=== PATIENT | female | born 2005 | race Caucasian/White ===

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

== ENCOUNTER → 2025-06-25 | Outpatient (CLI) | payer OTHER, SELFPAY ==
--- OUTSIDE RECORDS SUMMARY | 2025-06-25 09:33 | XMS RPT_ITS | CCD ---
Author Organization [facility] Care Team Providers Care Franchise Business Consultant Name Role Phone PHYSICIAN, NOT RECORDED Primary Care Physician U Veronica Moulton RN Unavailable Tri Greenwood Primary Care Provider Tri Greenwood DO Primary Care Provider Veronica Hurley RN Unavailable Tri Greenwood Primary Care Provider Vj VIEYRA, [facility] [place] Primary Care Provider UnavailVeronica Waldron RN Unavailable Tri Greenwood Primary Care Provider KHADIJAH CERVANTES Attending Unavailable TRI GREENWOOD Primary Care Unavailable TRI GREENWOOD Primary Care Unavailable RADHA NICE Attending Unavailable RADHA NICE Attending Unavailable TRI GREENWODO Primary Care Unavailable Vj VIEYRA, [facility] [place] Primary Care Provider UnavailAlberto Mccabe Attending Provider Alberto Montes Attending Unavailable VJ, [facility] [place] Unavailable ANTONIETA JAMES Attending Unavailable ANTONIETA JAMES Referring Unavailable VJ, [facility] [place] Care Unavailable ANTONIETA JAMES Attending Unavailable GAGE KHAN Attending Unavailable ALYSON OH Attending Unavailable CHELSEY ROBLES Attending Unavailable CHELSEY ROBLES Attending Unavailable CHELSEY ROBLES Referring Unavailable Allergies Allergy Classification Reported Allergen(s) Allergy Type Date of Onset Reaction(s) Facility (5 sources) Milk-Related Compounds; Translations: [MILK-RELATED COMPOUNDS] Drug Allergy [facility] Medications Current Medications Medication Drug Class(es) Dates Sig (Normalized) Sig (Original) FLUoxetine 10 mg oral capsule (12 sources) Serotonin Reuptake Inhibitor Start: 11-05-2021 FLUoxetine (PROZAC) 10 MG capsule TAKE 2 CAPSULES DAILY 180 Capsule 3 11/05/2021 Active Start: 04-10-2019 take 1 capsule by mo cah once daily Fluoxetine 20 mg capsule Active 20 mg PO DAILY April 10, 2019 12:00am Start: 11-09-2016 take 1 tablet by memo th once daily FLUoxetine (PROZAC) 10 mg tablet TAKE 1 & 1/2 TABLETS BY MOUTH ONCE A DAY 0 11/09/2016 Active FLUoxetine (PROZ AC) 20 MG/5ML oral solution Take by mouth daily 0 Active Comment on above: TAKE 1 & 1/2 TABLETS BY MOUTH ONCE A DAY Lactobacillus Combination No.4 (Probiotic) 3 billion cell capsule (1 source) Start: take 3 capsules by mouth once daily Lactobacillus Combination No.4 (Probiotic) 3 billion cell capsule Active 3000 NMA PO DAILY April 10, 2019 12:00am levothyroxine sodium 0.112 mg oral tablet (17 sources) l-Thyroxine Start: 3 SYNTHROID 112 mcg tablet 06/22/2023 Active Start: 06-29-2022 take 1 tablet by memo th once daily levothyroxine (SYNTHROID) 112 MCG tablet TAKE 1 TABLET BY MOUTH DAILY Strength: 112 mcg 90 Tablet 3 06/29/2022 Active Start: 05-26-2021 take 1 tablet by memo th once daily levothyroxine (SYNTHROID) 112 MCG tablet Take 1 Tablet (112 mcg) by mouth daily 90 Tablet 3 05/26/2021 Active Start: 06-19-2020 take 1 tablet by memo th once daily levothyroxine (SYNTHROID) 100 mcg tablet Take 100 mcg by mouth once daily. 0 06/19/2020 Active Start: 02-02-2015 levothyroxine (SYNTHROID) 125 mcg tablet levothyroxine Levothyroxine Active 100 MCG DAILY February 02, 2015 4:51pm 02-02-2015 [facility] ([id number]) 0 02/02/2015 Active Start: 02-02-2015 Levothyroxine 125 MCG tablet Active 100 ug PO DAILY February 02, 2015 12:00am Comment on above: levothyroxine Levoth yroxine Active 100 MCG DAILY February 02, 2015 4:51pm 02-02-2015 [facility] ([id number]) Take 100 mcg by mout h once daily. Multiple Vitamin (MULTI-VITAMIN DAILY PO) (3 sources) Multiple Vitamin (MULTI-VITAMIN DAILY PO) Take by mouth 0 Active multivitamin tablet (2 sources) multivitamin tab let Take by mouth as directed. Active predniSONE 10 mg oral tablet (1 source) Start: take 3 tablets by mouth once daily, then take 2 tablets by mouth once daily, then take 1 tablet by mouth once daily Prednisone 10 mg tablet Active 10 mg PO DAILY 18 0 December 31, 2024 12:00am 3 tablets daily x3 days, then 2 tablets daily x3 days, then 1 tablet daily x3 days Probiotic Product (PROBIOTIC-10 PO) (3 sources) Probiotic Produc t (PROBIOTIC-10 PO) Take by mouth 0 Active spironolactone 100 mg oral tablet (3 sources) Aldosterone Antagonist spironolactone (ALDACTONE) 100 MG Take by mouth 0 Active Completed/Discontinued Medications Medication Drug Class(es) Dates Sig (Normalized) Sig (Original) acetaminophen 325 mg oral tablet (4 sources) Start: 08-11-2020 End: 01-17-2023 take 2 tablets by mouth every six hours acetaminophen (TYLENOL) 325 mg tablet Take 2 tablets by mouth every 6 hours. 0 08/11/2020 01/17/2023 Discontinued (Course of therapy completed) Comment on above: Take 2 tablets by mo uth every 6 hours. amoxicillin 500 mg oral tablet (1 source) Penicillin-class Antibacterial Start: 08-04-2019 End: 05-29-2022 take 1 tablet by mouth twice daily Amoxicillin 500 mg tablet Discontinued 500 mg PO TWICE A DAY 20 0 August 04, 2019 1:00am May 29, 2022 1:38pm norethindrone 0.35 mg oral tablet (4 sources) Start: 05-30-2023 End: 03-08-2025 take 1 tablet by mouth once daily Norethindrone, Contraceptive, 0.35 mg tablet Take 1 tablet by mouth once daily. 84 tablet 3 04/06/2024 05/30/2024 Discontinued (Discontinued by Patient) oseltamivir 75 mg oral capsule (1 source) Neuraminidase Inhibitor Start: 05-29-2022 End: 06-03-2022 take 1 capsule by mouth twice daily Oseltamivir (Tamiflu) 75 mg capsule Discontinued 75 mg PO TWICE A DAY 10 5 0 May 29, 2022 1:00am June 02, 2022 1:00am June 03, 2022 1:03am spironolact/hydroch lorothiazid (SPIRONOLACTON-HYDR OCHLOROTHIAZ ORAL) (5 sources) Start: 06-03-2020 spironolact/hydroc hlorothiazid (SPIRONOLACTON-HYD ROCHLOROTHIAZ ORAL) Problems Active Problems Problem Classification Problem Date Documented Date Episodic/Chronic Anxiety disorders (4 sources) Generalized anxiety disorder; Translations: [Generalized anxiety disorder] Onset: 09-13-2010 08-13-2021 Chronic Cardiac dysrhythmias (5 sources) Palpitations; Translations: [Palpitations] Onset: 01-29-2015 01-29-2015 Episodic Esophageal disorders (4 sources) Gastroesophageal reflux disease; Translations: [Gastro-esophageal reflux disease without esophagitis] Onset: 11-13-2012 12-03-2012 Chronic Inflammatory diseases of female pelvic organs (1 source) Acute vaginitis; Translations: [Acute vaginitis] 05-30-2024 Episodic Other congenital anomalies (16 sources) Pectus excavatum; Translations: [Pectus excavatum] Onset: 09-20-2017 Chronic Other female genital disorders (1 source) Vaginal discharge; Translations: [Other specified noninflammatory disorders of vagina] 05-30-2024 Episodic Other female genital disorders (1 source) Vaginal odor; Translations: [Other specified noninflammatory disorders of vagina] 05-30-2024 Episodic Superficial injury; contusion (1 source) Contusion of thumb; Translations: [Contusion of unspecified thumb without damage to nail, initial encounter] 02-03-2015 Episodic Thyroid disorders (12 sources) Luba thyroiditis; Translations: [Autoimmune thyroiditis] Onset: 06-12-2013 Chronic Past or Other Problems Problem Classification Problem Date Documented Date Episodic/Chronic Contraceptive and procreative management (2 sources) Patient encounter status; Translations: [Encounter for other contraceptive management] Onset: 07-15-2023 04-06-2024 Episodic Other nervous system disorders (7 sources) Acute postoperative pain; Translations: [Other acute postprocedural pain] Onset: 08-11-2020 08-11-2020 Episodic Other nutritional; endocrine; and metabolic disorders (4 sources) Short stature of childhood; Translations: [Short stature (child)] Onset: 06-12-2013 Resolved: 09-25-2017 01-09-2018 Episodic Other upper respiratory disease (2 sources) Nasal congestion; Translations: [Nasal congestion] Onset: 06-10-2024 Episodic Other upper respiratory infections (6 sources) Upper respiratory infection; Translations: [Acute upper respiratory infection, unspecified] Onset: 08-24-2024 05-29-2022 Episodic Residual codes; unclassified (4 sources) Finding of body mass index; Translations: [Body mass index (BMI) pediatric, 5th percentile to less than 85th percentile for age] Onset: 06-12-2013 06-12-2013 Episodic Spondylosis; intervertebral disc disorders; other back problems (4 sources) Backache; Translations: [Dorsalgia, unspecified] Onset: 09-20-2017 Resolved: 01-09-2018 01-09-2018 Episodic Sprains and strains (4 sources) Sprain of interphalangeal joint of finger; Translations: [Sprain of interphalangeal joint of unspecified finger, initial encounter] Onset: 10-29-2008 Resolved: 01-09-2018 01-09-2018 Episodic Viral infection (2 sources) Viral infection, unspecified; Translations: [Viral infection, unspecified] Onset: 06-10-2024 Episodic Results Test Name Value Interpretation Reference Range Facility FERRITINon 01-29-2025 Ferritin [Mass/Vol] 75 ng/mL Normal 22-378 [facility] Comment on above: Result Comment: Veri fied By: [id number] IRONon 01-29-2025 %Saturation 22 % Normal 13-59 [facility] Comment on above: Result Comment: Veri fied By: [id number] IRON 68 ???g/dL Normal 30-160 [facility] Comment on above: Result Comment: Veri fied By: [id number] TIBC 309 ???g/dL Normal 228-428 [facility] Comment on above: Result Comment: Veri fied By: [id number] Progress Noteon 01-29-2025 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 female who is followed for Luba's thyroiditis. HPI Comments: Ryne is present today for a follow up visit for Luba's thyroiditis. She has been healthy over the past year. She denies any signs or symptoms of concern related to her thyroid disease. Her current dose is Levothyroxine 112 mcg and denies missed doses. She confirmed her administration on an empty stomach with no additional supplements such as iron. 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 She is entering her senior year and is unsure as to where she will be living after graduation. ROS Review of Systems Constitutional: Negative. HENT: Negative. Eyes: Negative. Respiratory: Negative. Cardiovascular: Negative. Gastrointestinal: Negative. Genitourinary: Negative. Cycles are irregular at times, 21-30 day. Musculoskeletal: Negative. Skin: Negative. Neurological: Negative. Negative for headaches. Endo/Heme/Allergies: Negative. No concerns with signs or symptoms related to thyroid. Psychiatric/Behavior al: Negative. Denies any concerns with anxiety or depression, for which she does have a history of. All other systems reviewed and are negative. Patient's medications, allergies, past medical, surgical, , social, and family histories were reviewed and updated as appropriate. Patient Active Problem List Diagnosis Date Noted Pectus excavatum 09/20/2017 Palpitation 01/29/2015 Chronic lymphocytic thyroiditis 06/12/2013 BMI (body mass index), pediatric, 5% to less than 85% for age 1206/12/2013 Esophageal reflux 11/13/2012 Generalized anxiety disorder 09/13/2010 Current Outpatient Medications on File Prior to Visit Medication Sig Dispense Refill levothyroxine (SYNTHROID) 112 MCG tablet Take 1 Tablet (112 mcg) by mouth daily 30 Tablet 5 levothyroxine (SYNTHROID) 112 MCG tablet TAKE 1 TABLET BY MOUTH DAILY Strength: 112 mcg 90 Tablet 3 No current facility-administere d medications on file prior to visit. Allergies Allergen Reactions Milk-Related Compounds Objective: BP 110/74 Pulse 104 Ht 163.9 cm Wt (!) 48.9 kg LMP 01/16/2025 BMI 18.20 kg/m Growth %ile SmartLinks can only be used for patients less than 20 years old. Wt Readings from Last 3 Encounters: 01/29/25 (!) 48.9 kg 01/31/24 (!) 47.7 kg 02/22/23 49.5 kg (15%, Z= -1.05)* * Growth percentiles are based on CDC (Girls, 2-20 Years) data. Ht Readings from Last 3 Encounters: 01/29/25 163.9 cm 01/31/24 163.5 cm 02/22/23 164 cm (54%, Z= 0.11)* * Growth percentiles are based on CDC (Girls, 2-20 Years) data. Facility age limit for growth %yuri is 20 years. Physical Exam Vitals reviewed. Constitutional: Appearance: Normal appearance. She is well-developed and underweight. Comments: She is noted for approximately 5 pound weight loss since her last visit HENT: Mouth/Throat: Lips: [place]. No lesions. Mouth: Mucous membranes are moist. Eyes: General: Vision grossly intact. Conjunctiva/sclera: Conjunctivae normal. Pupils: Pupils are equal, round, and reactive to light. Neck: Thyroid: No thyromegaly or thyroid tenderness. Cardiovascular: Rate and Rhythm: Normal rate. Pulses: Normal pulses. Heart sounds: Normal heart sounds. Pulmonary: Effort: Pulmonary effort is normal. Breath sounds: Normal breath sounds. Abdominal: Palpations: Abdomen is soft. Feet: Right foot: Skin integrity: Skin integrity normal. Left foot: Skin integrity: Skin integrity normal. Skin: General: Skin is warm. Capillary Refill: Capillary refill takes less than 2 seconds. Neurological: General: No focal deficit present. Mental Status: She is alert and oriented to person, place, and time. Mental status is at baseline. Psychiatric: Attention and Perception: Attention and perception normal. Mood and Affect: Mood normal. Behavior: Behavior normal. Behavior is cooperative. Thought Content: Thought content normal. Cognition and Memory: Cognition normal. Judgment: Judgment normal. LABS: Component Latest Ref Rng & Units 01/25/2022 02/15/2022 02/18/2023 01/31/24 01/29/25 T4, Free 0.8 - 1.5 ng/dL 1.2 1.3 1.6 (H) 1.6 1.9 TSH 0.500 - 4.300 uIU/mL 16.700 (H) 2.910 3.950 4.220 1.150 DOSE 112 mcg 112 mcg 25 OH Vitamin D 30 - 100 ng/mL 39 Iron/Ferritin 69/309/22% Assessment & Plan: 19 y.o. female with Luba's thyroiditis who presents today bio-chemically and clinically euthyroid. She is doing well on her current dose of Levothyroxine 112 mcg daily. Review of all symptoms related to hypothyroidism and hyperthyroidism were reviewed with her today. Encouragement for adherence administration of the medication with no missed doses. We will see her back in the clinic in 1 year. Orders Placed This Encounter Procedure (more content not included)... Normal [facility] T4, FREEon 01-29-2025 Free T4 [Mass/Vol] 1.9 ng/dL High 0.8-1.5 [facility] Comment on above: Order Comment: Relea se to patient->Automatic Result Comment: Alexandro regalado By: [id number] TSHon 01-29-2025 TSH 1.150 ???IU/mL Normal 0.300-4.200 [facility] Comment on above: Order Comment: Relea se to patient->Automatic Result Comment: Alexandro regalado By: [id number] Urgent Care Visit Reporton 0 12-31-2024 Urgent Care Visit Report [facility] [address], [address] [place] [address] OFFICE VISIT Date of Service: 12/31/24 MR#: [id number] Acct: [id number] Name: RYNE YATES Tomasz Rep #: [id number] : 2005 Provider: SYLVIA Rebolledo Age/Sex: 19/F Location: [facility] Status: Signed Intake Vital Signs 08/04/19 12:23 12/31/24 17:59 Height 5 ft 4 in 5 ft 4 in Weight: 110 lb BMI 18.8 BP 90/60 Blood Pressure Location Lt brachial Position Sitting Respiration 14 Pulse 68 Pulse Source Palpation Temp 98.3 F Temp Source Oral Intake Visit Reasons: POSSIBLE BUG BITES Allergies No Known Allergies Allergy (Verified 08/04/19 12:24) [facility] Medical History (Updated 01/01/25 @ 06:27 by Alberto AWRD, SYLVIA) Insect bites Hypothyroidism Pectus excavatum Social History (Updated 08/04/19 @ 12:34 by Dee WARD, PA) Smoking Status: Never smoker alcohol intake: never HPI HPI Details: RYNE YATES, is a 19 F who presents to the office today for pruritic insect bites after hiking was 2 days ago with localized excoriation due to scratching patient so states. X 2 lesions to left lower extremity, x 1 to right lower extremity. No complaints of constricted/pruritic airway or chest pain/shortness of breath/dyspnea on exertion. No ufmo-pga-vgyrnmg product diagnosis. Mother is concerned when needing to ensure the insect bites do not appear like erythema migrans. No other associated symptoms and no alleviating/aggravat ing factors. ROS Const Constitutional: No other (as above) Exam Const General: cooperative, healthy appearing and no acute distress Nutritional Appearance: average body habitus Orientation: alert and awake Neck Neck: normal visual inspection and no meningeal signs Chest Chest palpation inspection: normal inspection of the chest Resp Effort Inspection: normal respiratory effort and able to speak in complete sentences Cardio Rate: regular rate Pulses: radial pulses present GI Inspection: normal to inspection Skin General: no rashes or lesions noted Other: Symptoms 3 lesions to BLE (2 to LLE and 1 to RLE) each with a pinpoint raised erythematous center of approximately half a centimeter in diameter and circumferential trace erythema approximately 10 cm diameter to all 3 sites. Not the classic erythema migrans presentation nor foreign body/tick appreciated upon inspection. None of the sites are warm to touch. Neuro General: patient alert and patient awake Cognition: normal cognition Speech: speech normal Extrem General: normal to inspection Psych Appearance: grossly normal Mental Status: mental status grossly normal Mood: congruent mood Affect: normal affect Speech and Movement: speech and movement normal Attitude: cooperative Coding Level of Care Code Off vis,est,level 3 Diagnoses Insect bites W57.XXXA Assessment and Plan Assessment and Plan (1) Insect bites: Status: Acute Plan: - By presentation Supportive measures as instructed today. Prednisone as prescribed today. Ensured mother that none of the sites have a classic erythema migrans type presentation.. Follow-up with PCP in 5 to 7 days should symptoms not resolve, sooner should symptoms only worsen or any other concerns develop. Patient and mother both state acknowledging understanding all the above. This note was generated with HomeVivaation software. It may contain incorrect words, spelling, and punctuation that were not noted in checking the note before signing. Medications: New prednisone 3 tablets daily x3 days, then 2 tablets daily x3 days, then 1 tablet daily x3 days 10 mg PO DAILY 18 tabs 0RF 01/01/25 0629 Date Alberto Murguia Signature: Date (if applicable) CC: Normal [facility] BACTERIAL VAGINOSIS NAATon 1 07-30-2023 Lactobacillus crispatus+gasseri+velia enii + Gardnerella vaginalis + Atopobium vaginae rRNA BRITTANI+probe Ql (Vag fld) Not detected Normal Not detected [facility] Comment on above: Order Comment: Speci men Type: SWAB Ordering Facility: [facility] Address: [address] [place] [address] Performed By: #### C VTV, BVAMP #### [facility] CLIA [id number] [address] [place] [address] [place] C. trachomatis+N. gonorrhoea e DNA BRITTANI+probe Ql (Unsp spec)on 05-30-2024 C. trachomatis rRNA BRITTANI+probe Ql (Unsp spec) Not detected Normal Not detected [facility] Comment on above: Order Comment: Speci men Type: SWAB Ordering Facility: [facility] Address: [address] [place] [address] Performed By: #### 3 [id number] #### [facility] CLIA [id number] [address] [place] [address] [place] N. gonorrhoeae rRNA BRITTANI+probe Ql (Unsp spec) Not detected Normal Not detected [facility] Comment on above: Order Comment: Speci men Type: SWAB Ordering Facility: [facility] Address: [address] [place] [address] Performed By: #### 3 [id number] #### [facility] CLIA [id number] [address] [place] [address] [place] VANGIE/TRICHOMONAS NAATon 1 07-30-2023 C. glabrata RNA BRITTANI+probe Ql (Vag fld) Not detected Normal Not detected [facility] Comment on above: Order Comment: Speci men Type: SWAB Ordering Facility: [facility] Address: [address] [place] [address] Performed By: #### C VTV, BVAMP #### [facility] CLIA [id number] [address] [place] [address] [place] Vangie sp DNA BRITTANI+probe Ql (Vag fld) Not detected Normal Not detected [facility] Comment on above: Order Comment: Speci men Type: SWAB Ordering Facility: [facility] Address: [address] [place] [address] Result Comment: The Vangie species group target includes C. albicans, C. tropicalis, C. parapsilosis, and C. dubliniensis. Performed By: #### C VTV, BVAMP #### [facility] CLIA [id number] [address] [place] [address] [place] T. vaginalis DNA BRITTANI+probe Ql (Unsp spec) Not detected Normal Not detected [facility] Comment on above: Order Comment: Speci men Type: SWAB Ordering Facility: [facility] Address: [address] [place] [address] Performed By: #### C VTV, BVAMP #### [facility] CLIA [id number] [address] [place] [address] [place] CNOVon 05-30-2024 CNOV Office Visit (OBGYWM) RYNE YATES ([id number]) 1 F Date Time Provider Department 05/30/24 1:45 PM KHADIJAH CERVANTES OBGYWAngela During your visit today, we recorded the following information about you: Blood pressure Weight Last Period 104/78 50.3 kg 02/13/24 Khadijah Cervantes APRN.CNM 05/30/2024 2:30 PM Signed Oral Surgeon offered: Patient declines. SUBJECTIVE: Ryne Yates is an 18 year old woman who presents with vaginitis. Symptoms include discharge described as malodorous, white, mucous, local irritation, and odor. Onset of symptoms 1 week(s) ago, intermittent since. Predisposing factors: none Hx of previous vaginitis: none Sexually active: yes, single partner, contraception - condoms. Current Outpatient Medications on File Prior to Visit Medication Sig multivitamin tablet Take by mouth as directed. SYNTHROID 112 mcg tablet Norethindrone, Contraceptive, 0.35 mg tablet Take 1 tablet by mouth once daily. No current facility-administere d medications on file prior to visit. ALLERGIES No Known Allergies Social History Tobacco Use Smoking status: Never Passive exposure: Never Smokeless tobacco: Never Vaping Use Vaping status: Never Used Substance Use Topics Alcohol use: Never Drug use: Never OBJECTIVE: BP 104/78 Wt 50.3 kg (110 lb 12.8 oz) LMP 02/13/2024 (Approximate) BMI 18.53 kg/m? Pelvic: Negative, Bimanual exam normal. ASSESSMENT AND PLAN: Assessment AND Plan Vaginal discharge Vaginal odor Acute vaginitis GC/CH BACT/YEAST Reviewed vulvar hygiene Reviewed safe sex practices- stopped using OCP last month and is currently using condoms Will notify patient of results and any treatment plans Khadijah Cervantes APRN.CNM Allergies As of Date: 05/30/2024 (No Known Allergies) Date Reviewed: 05/30/2024 Reviewed by: Tri Hooker MA - Fully Assessed Reason for Visit: Vaginal Problem [117] Primary Visit Diagnosis:Vaginal discharge [N89.8] Other Visit Diagnoses:Vaginal odor [N89.8] Acute vaginitis [N76.0] Order(s):BACTERIAL VAGINOSIS NAAT [SQBVAMP] Order #: [id number]. #:[id number] VANGIE/TRICHOMONAS NAAT [SQCVTV] Order #: [id number]. #:[id number] GONORRHEA/CHLAMYDIA NAAT [SQGCCT] Order #: [id number]. #:[id number] Prescriptions as of 05/30/2024 - multivitamin tablet Take by mouth as directed. - SYNTHROID 112 mcg tablet Problem List As Of Date 05/30/2024 Noted Resolved Pectus excavatum [Q67.6] 08/07/2020 Acute post-operative pain [G89.18] 08/11/2020 Medications Discontinued During This Encounter Prescriptions - Norethindrone, Contraceptive, 0.35 mg tablet (Discontinued) Take 1 tablet by mouth once daily. Encounter Status:Closed by KHADIJAH CERVANTES on 05/30/24 Normal [facility] No Panel InformationOrdered By: Background Lab on 01-31-2024 Interpretation and review of laboratory results Abnormal [facility] T4, freeOrdered By: Mimi nd Lab on 01-31-2024 Free T4 [Mass/Vol] 1.6 ng/dL High [facility] TSHon 01-31-2024 TSH Qn 4.220 m[IU]/L High [facility] CNOVon 07-15-2023 CNOV Office Visit (OBGYWM) RYNE YATES ([id number]) 1 F Date Time Provider Department 07/15/23 1:30 PM RADHA NICE During your visit today, we recorded the following information about you: Blood pressure Weight 90/58 48.3 kg Radha NiceMIRIAN 07/15/2023 1:52 PM Signed Oral Surgeon offered: Patient declines. Ryne is a 17 year old who presents for an annual gynecologic exam without complaints. Presents: alone Menses: light spotting usually no menses. Contraception: Progestin - only contraceptives HPV vaccine: N/A Last pap smear: never Sexually active: Yes History of STDS: None Patient concerns for STD exposure: No. 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 History Comments: Sexual Activity: Yes; Male Contraception: Pill PAST MEDICAL HISTORY Diagnosis Date Luba's disease PAST SURGICAL HISTORY Procedure Laterality Date REPAIR PECTUS EXCAVATM/CARINATM MINLY W/O THRSC FAMILY HISTORY Problem Relation Age of Onset No Known Problems Mother No Known Problems Father No Known Problems Brother No Known Problems Brother No Known Problems Maternal Grandmother No Known Problems Maternal Grandfather No Known Problems Paternal Grandmother No Known Problems Paternal Grandfather SOCIAL HISTORY Social History Tobacco Use Smoking status: Never Passive exposure: Never Smokeless tobacco: Never Vaping Use Vaping Use: Never used Substance Use Topics Alcohol use: Never Drug use: Never REVIEW OF SYSTEMS Abdomen: No bloating, early satiety, indigestion, or increased flatulence. No abdominal pain, nausea, vomiting, diarrhea, or constipation. Bladder: No dysuria, gross hematuria, urinary frequency, urinary urgency, or incontinence. Breast: No breast lumps, nipple d/c, overlying skin changes, redness or skin retraction. Allergies and current medication updated:Yes EXAM: Wt 106 lb 6.4 oz (48.3kg) LMP 12/24/2022 GENERAL: pleasant, in no apparent distress HEENT: Normocephalic, atraumatic, mucus membranes moist, and no lesions CHEST: Normal inspiratory effort NEURO: alert and oriented x3,exam grossly non-focal EXTREMITIES: normal ASSESSMENT/PLAN: 1) Health maintenance: Pap starting at the age of 21. Safe sex practices reviewed. Nutrition, exercise, and routine health maintenance exams reviewed. 2) Contraception: Progestin - only contraceptives. Contraceptive options reviewed and information provided. 3) STD screening: Declined STD check. 4) Follow up one year or sooner as needed. Radha Nice APRN.YACHT MASTER Referring Provider: SELF [[id number]] Allergies As of Date: 07/15/2023 (No Known Allergies) Date Reviewed: 07/15/2023 Reviewed by: Patrica Larsen LPN - Fully Assessed Reason for Visit: Refill Request [94] Primary Visit Diagnosis:Encounter for gynecological examination (general) (routine) without abnormal findings [Z01.419] Other Visit Diagnosis:Encounter for surveillance of contraceptive pills [Z30.41] Order(s):Norethindro ne, Contraceptive, 0.35 mg tabletTake 1 tablet by mouth every afternoon.Disp: 84 tabletRfl: 4 Prescriptions as of 07/15/2023 - multivitamin tablet Take by mouth as directed. - SYNTHROID 112 mcg tablet - Norethindrone, Contraceptive, 0.35 mg tablet Take 1 tablet by mouth every afternoon. Problem List As Of Date 07/15/2023 Noted Resolved Pectus excavatum [Q67.6] 08/07/2020 Acute post-operative pain [G89.18] 08/11/2020 Prescriptions ordered this encounter Disp Refills Start End NORETHINDRONE (CONTRACEPTIVE) 0.35 M* 84 t* 4 07/15/2023 Route: ORAL Sig: Take 1 tablet by mouth every afternoon. Medications Discontinued During This Encounter Prescriptions - spironolact/hydrochl orothiazid (SPIRONOLACTON-HYDRO CHLOROTHIAZ ORAL) (Discontinued) Reported on 02/01/2022 - levothyroxine (SYNTHROID) 125 mcg tablet (Discontinued) Reported on 07/15/2023 - FLUoxetine (PROZAC) 10 mg tablet (Discontinued) TAKE 1 AND 1/2 TABLETS BY MOUTH ONCE A DAY - levothyroxine (SYNTHROID) 100 mcg tablet (Discontinued) Take 100 mcg by mouth once daily. - Norethindrone, Contraceptive, 0.35 mg tablet (Discontinued) Take 1 tablet by mouth every afternoon. Disposition: Return in 1 year (on 07/15/2024) for Annual Exam. Follow-up and Disposition History for Encounter Date Provider Department Center 07/15/2023 [id number]-AVCRRTDRADHA NICE [facility] Encounter Status:Closed by RADHA NICE on 07/15/23 Normal [facility] No Panel Informationon 02-18 Release to patient->[facility] T4, free02-18-2023 Free T4 [Mass/Vol] 1.6 ng/dL High 0.8 - 1.5 ng/dL [facility] Interpretation and review of laboratory results Abnormal [facility] TSHon 02-18-2023 TSH Qn 3.950 m[IU]/L [facility] Vitamin D 25 hydroxyon 02-18 25 [place] Vitamin D 39 ng/mL 30 - 100 ng/mL [facility] Comment on above: Reference ranges pro vided by [facility] Laboratory are based on Endocrine Society Guidelines: Level: Characterization < 21 ng/mL: Vitamin D deficiency 21-29 ng/mL: Suboptimal Vitamin D status 30-100 ng/mL: Optimal Vitamin D status >100 ng/mL: Potentially toxic Vitamin D effects XR CHEST 2V FRONTAL/LATon [facility] No Panel Informationon 02-15 Release to patient->[facility] T4, free02-15-2022 Free T4 [Mass/Vol] 1.3 ng/dL 0.8 - 1.5 ng/dL [facility] TSHon 02-15-2022 TSH Qn 2.910 m[IU]/L [facility] No Panel Informationon 01-25 Release to patient->[facility] T4, free01-25-2022 Free T4 [Mass/Vol] 1.2 ng/dL 0.8 - 1.5 ng/dL [facility] TSHon 01-25-2022 Interpretation and review of laboratory results Abnormal [facility] TSH Qn 16.700 m[IU]/L High [facility] XR CHEST 2V FRONTAL/LATon [facility] [id number] 08-18-2021 Date of Onset [id number] Invalid Interpretation Code [facility] ([place]) Comment on above: Performed By: #### C OVD19 #### [place] [address] Employed in Healthcare No [facility] ([place]) Comment on above: Performed By: #### C OVD19 #### [place] [address] First Test No [facility] ([place]) Comment on above: Performed By: #### C OVD19 #### [place] [address] Hospitalized No [facility] ([place] Comment on above: Performed By: #### C OVD19 #### [place] [address] ICU No [facility] ([place] Comment on above: Performed By: #### C OVD19 #### [place] [address] Not [facility] ([place] Comment on above: Performed By: #### C OVD19 #### [place] [address] Resides in Congregate Care Setting No [facility] ([place] Comment on above: Performed By: #### C OVD19 #### [place] [address] SARS-CoV-2 (COVID-19) RNA BRITTANI+probe Ql (Unsp spec) Negative Normal Negative [facility] ([place]) Comment on above: Performed By: #### C OVD19 #### [place] [address] SARS-CoV-2 (COVID-19) RNA BRITTANI+probe Ql (Unsp spec) [facility] ([place]) Comment on above: Result Comment: Nega tive results do not preclude SARS-CoV-2 infection and should not be used as the sole basis for patient management decisions. Negative results must be combined with clinical observations, patient history, and epidemiological information. There is a risk of false negative values resulting from improperly collected, transported, or handled specimens. There is a risk of false negative values due to the presence of sequence variants in the pathogen targets of the assay, procedural errors, amplification inhibitors in specimens, or inadequate numbers of organisms for amplification. FRANCIS SARS-CoV-2 Assay is a Real-Time reverse-transcriptase polymerase chain reaction (RT-PCR) based qualitative in vitro diagnostic test intended for the qualitative detection of nucleic acid from the SARS-CoV-2 in nasopharyngeal swab specimens collected from individuals suspected of COVID-19 by their healthcare provider. Testing is limited to laboratories certified under the Clinical Laboratory Improvement Amendments of 1988 (CLIA), 42 U.S.C. ?263a, to perform moderate and high complexity tests. COVID-19 Int Performed By: #### C OVD19 #### [address] [address] Symptomatic as Defined by [facility] No Normal [facility] ([place]) Comment on above: Performed By: #### C OVD19 #### [address] [address] LABORATORYOrdered By: Esthela Lopez on 08-17-2021 ADMITTED TO INTENSIVE CARE UNIT FOR CONDITION OF INTEREST:FIND:PT:^VALERIY ENT:ORD: No (08/17/21 3:13 PM) Invalid Interpretation Code AO Auto Urine SS EMPLOYED IN A HEALTHCARE SETTING:FIND:PT:^PATIE NT:ORD: No (08/17/21 3:13 PM) Invalid Interpretation Code AO Auto Urine SS FIRST TEST FOR CONDITION OF INTEREST:FIND:PT:^VALERIY ENT:ORD: No (08/17/21 3:13 PM) Invalid Interpretation Code AO Auto Urine SS HAS SYMPTOMS RELATED TO CONDITION OF INTEREST:FIND:PT:^VALERIY ENT:ORD: No (08/17/21 3:13 PM) Invalid Interpretation Code AO Auto Urine SS Illness or injury onset date and time [id number] Invalid Interpretation Code AO Auto Urine SS Patient was hospitalized because of this condition No (08/17/21 3:13 PM) Invalid Interpretation Code AO Auto Urine SS status Not (08/17/21 3:13 PM) Invalid Interpretation Code AO Auto Urine SS RESIDES IN A CONGREGATE CARE SETTING:FIND:PT:^PATIE NT:ORD: No (08/17/21 3:13 PM) Invalid Interpretation Code AO Auto Urine SS SARS-CoV-2 (COVID-19) RNA BRITTANI+probe Ql (Resp) Negative (08/17/21 3:13 PM) Invalid Interpretation Code Negative AO Auto Urine SS SARS-CoV-2 (COVID-19) RNA BRITTANI+probe Ql (Unsp spec) Negative results do not preclude SARS-CoV-2 infection and should not be used as the sole basis for patient management decisions. Negative results must be combined with clinical observations, patient history, and epidemiological information.There is a risk of false negative values resulting from improperly collected, transported, or handled specimens.There is a risk of false negative values due to the presence of sequence variants in the pathogen targets of the assay, procedural errors, amplification inhibitors in specimens, or inadequate numbers of organisms for amplification.[employer] SARS-CoV-2 Assay is a Real-Time reverse-transcriptas e polymerase chain reaction (RT-PCR) based qualitative in vitro diagnostic test intended for the qualitative detection of nucleic acid from the SARS-CoV-2 in nasopharyngeal swab specimens collected from individuals suspected of COVID-19 by their healthcare provider. Testing is limited to laboratories certified under the Clinical Laboratory Improvement Amendments of 1988 (CLIA), 42 U.S.C. 263a, to perform moderate and high complexity tests. Invalid Interpretation Code AO Auto Urine SS Vital Signs Date Time Vital Sign Value Performing Clinician Faci lity 05-30-2024 13:48-0500 Body mass index (BMI) [Ratio] 18.53 kg/m2 Khadijah Cervantes BRILLIANDEER LOOPER.PASQUALEM Work Phone: [facility] 05-30-2024 13:48-0500 Body weight 50.26 kg Khadijah Cervantes BRILLIANDEER LOOPER.ESTHER Work Phone: [facility] 05-30-2024 13:48-0500 Diastolic blood pressure 78 mm[Hg] Khadijah Cervantes BRILLIANDEER LOOPER.CNM Work Phone: [facility] 05-30-2024 13:48-0500 Systolic blood pressure 104 mm[Hg] Khadijah Cervantes BRILLIANDEER LOOPER.PASQUALEM Work Phone: [facility] 01-17-2023 09:42-0400 Body height 164.7 cm Tyrel Cowan MD Work Phone: [facility] 01-17-2023 09:42-0400 Body weight 50 kg Tyrel Cowan MD Work Phone: [facility] 09-30-2021 16:05-0400 Body height 162.8 cm Tyrel Cowan MD Work Phone: [facility] 09-30-2021 16:05-0400 Body mass index (BMI) [Percentile] Per age and sex 13.13 % Tyrel Cowan MD Work Phone: [facility] 09-30-2021 16:05-0400 Body weight 48.9 kg Tyrel Cowan MD Work Phone: [facility] Encounters Encounter Date Encounter Type Care Provider Facility Start: 05-10-2025 ambulatory GAGE KHAN [facility] Start: 01-29-2025 End: 01-29-2025 ambulatory ANTONIETA JAMES [facility] Start: 12-31-2024 End: 12-31-2024 Patient encounter procedure Albertolilian Mensah [facility] Work Phone: Start: 12-31-2024 End: 12-31-2024 ambulatory Alberto Mensah [facility] Start: 10-17-2024 ambulatory ALYSON BethKelly [place] [facility] Start: 08-24-2024 [facility] Start: 06-10-2024 ambulatory CHELSEY MARGARET [facility] Start: 05-30-2024 End: 05-30-2024 ambulatory KHADIJAH CERVANTES Facility:[facility] Start: 05-30-2024 End: 05-30-2024 Patient encounter procedure Khadijah Cervantes BRILLIANDEER LOOPER.CNM Work Phone: OB/Gynecology Comment on above: Vaginal discharge (P rimary Dx); Vaginal odor; Acute vaginitis Start: 04-06-2024 End: 04-06-2024 ambulatory Radha Nice APRN.YACHT MASTER Work Phone: OB/Gynecology Comment on above: Encounter for other contraceptive management (Primary Dx) Start: 04-06-2024 End: 04-06-2024 Telemedicine consultation with patient Radha Nice APRNKellyYACHT MASTER Work Phone: OB/Gynecology Start: 01-31-2024 End: 01-31-2024 Subsequent hospital visit by physician Antonieta James BRILLIANDEER LOOPER-YACHT MASTER Work Phone: Lab - [place] Comment on above: Chronic lymphocytic thyroiditis Start: 07-15-2023 End: 07-15-2023 ambulatory [facility] Facility:[facility] Start: 07-15-2023 Encounter for gynecological examination (general) (routine) without abnormal findings [facility] Start: 02-18-2023 End: 02-18-2023 Subsequent hospital visit by physician Antonieta James BRILLIANDEER LOOPER-YACHT MASTER Work Phone: Lab - [place] Comment on above: Chronic lymphocytic thyroiditis Start: 01-17-2023 End: 01-17-2023 Patient encounter procedure Tyrel Cowan MD Work Phone: Pediatric Surgery Comment on above: Pectus excavatum (Pr imary Dx) Start: 01-17-2023 End: 01-17-2023 Subsequent hospital visit by physician Xr [facility] Work Phone: Radiology Comment on above: Pectus excavatum [Q6 7.6] Start: 02-15-2022 End: 02-15-2022 Subsequent hospital visit by physician Antonieta aJmes BRILLIANDEER LOOPER-YACHT MASTER Work Phone: Lab - [place] Comment on above: Chronic lymphocytic thyroiditis Start: 01-25-2022 End: 01-25-2022 Subsequent hospital visit by physician Tri Greenwood DO Work Phone: Lab - [place] Comment on above: Chronic lymphocytic thyroiditis Start: 09-30-2021 End: 09-30-2021 Patient encounter procedure Tyrel Cowan MD Work Phone: Pediatric Surgery Comment on above: Pectus excavatum (Pr imary Dx) Start: 09-30-2021 End: 09-30-2021 Subsequent hospital visit by physician [facility] Work Phone: Radiology Comment on above: Pectus excavatum [Q6 7.6] Start: 09-25-2021 Orders Only Juliana GOMES RN.YACHT MASTER Work Phone: Pediatric Surgery Comment on above: Pectus excavatum (Pr imary Dx) Start: 08-17-2021 End: 08-17-2021 Patient encounter procedure ROMINA PATRICIO DO [facility] Procedures Date Procedure Procedure Detail Performing Clinician Start: 01-31-2024 Assay of free thyroxine Antonieta James BRILLIANDEER LOOPER-YACHT MASTER Work Phone: Start: 02-18-2023 Assay of free thyroxine Antonieta James B[employer]LLIANDEER LOOPER-YACHT MASTER Work Phone: Start: 01-17-2023 Radiologic exam ches t 2 views Juliana Albarado APRN.YACHT MASTER Work Phone: Start: 02-15-2022 Thyrotropin [Units/v olume] in Serum or Plasma Antonieta James B[employer]LLIANDEER LOOPER-YACHT MASTER Work Phone: Start: 02-15-2022 Thyroxine (T4) free [Mass/volume] in Serum or Plasma Antonieta James BRILLIANDEER LOOPER-YACHT MASTER Work Phone: Start: 01-25-2022 Assay of free thyroxine Antonieta James BRILLIANDEER LOOPER-YACHT MASTER Work Phone: Plan of Treatment Date Care Activity Detail Author Start: 02-03-2026 Tetanus Diphtheria a nd Pertussis Vaccines (7 - Td or Tdap) Tetanus Diphtheria and Pertussis Vaccines (7 - Td or Tdap) [facility] Start: 02-03-2026 Urine microalbumin profile DTaP,Tdap,Td Vaccine (7 - Td or Tdap) [facility] Start: 03-04-2024 Covid-19 Vaccine ( season) Covid-19 Vaccine ( season) [facility] Start: 03-04-2024 FLU (#1) FLU (#1) [facility] Start: 03-04-2024 Influenza vaccination Influenza Vacc ine (#1) [facility] Start: 03-04-2023 COVID-19 (2 4 season) COVID-19 ( season) [facility] Start: 03-04-2023 FLU (#1) FLU (#1) [facility] Start: 03-04-2023 Influenza vaccination INFLUENZA (#1) [facility] Start: 02-22-2023 End: 02-22-2023 Patient encounter procedure 02/22/2023 9:20 AM EDT Office Visit [facility] - [place] [address] [place] [address] Antonieta James, BRILLIANDEER LOOPER-YACHT MASTER [place], [place] [id number] [facility] [place] Start: 11-13-2022 Urine microalbumin profile DTAP,TDAP,TD (1 - Tdap) [facility] Start: 07-04-2022 DEPRESSION ASSESSMENT DEPRESSION ASS ESSMENT [facility] Start: 03-04-2022 FLU (#1) FLU (#1) [facility] Start: 02-06-2022 Well Visit Well Visit [facility] Start: 01-26-2022 End: 01-26-2022 Patient encounter procedure 01/26/2022 Office Visit Endocrinology Antonieta James, BRILLIANDEER [place] [address] Diabetes & Endocrinology [facility] Start: 11-13-2021 Anxiety Screening Anxiety Screening [facility] Start: 11-13-2021 CHLAMYDIA SCREENING (18-24) CHLAMYDIA SCREENING (18-24) [facility] Start: 11-13-2021 Depression Screening Depression Scre ening [facility] Start: 11-13-2021 GC (GONORRHEA) SCREENING (18-24) GC (GONORRHEA) SCREENING (18-24) [facility] Start: 11-13-2021 Hearing Screening Hearing Screening [facility] Start: 11-13-2021 HEPATITIS C SCREENING HEPATITIS C [facility] Start: 11-13-2021 Hepatitis C screening Hepatitis C [facility] Start: 11-13-2021 HIV SCREENING HIV SCREENING [facility] Start: 11-13-2021 HIV screening HIV Screening [facility] Start: 11-13-2021 Screening for Chlamy bishop trachomatis Chlamydia Screening (18-24) [facility] Start: 03-04-2021 Influenza vaccination INFLUENZA (#1) [facility] Start: 2019 MenB (1 of 2 - MenB 2-Dose Series Bexsero) MenB (1 of 2 - MenB 2-Dose Series Bexsero) [facility] Start: 2019 MenB (1 of 2 - MenB 2-Dose Series) MenB (1 of 2 - MenB 2-Dose Series) [facility] Start: 2019 Meningococcal B Vaccine: Consider Based On Risk (1 of 2 - Patient Seeks Protection) Meningococcal B Vaccine: Consider Based On Risk (1 of 2 - Patient Seeks Protection) [facility] Start: 2019 MENINGOCOCCAL B: Consider based on risk (1 of 2 - Patient Seeks Protection) MENINGOCOCCAL B: Consider based on risk (1 of 2 - Patient Seeks Protection) [facility] Start: 2019 MENINGOCOCCAL CONJUG ATE (1 - 2-dose series) MENINGOCOCCAL CONJUGATE (1 - 2-dose series) [facility] Start: 11-13-2018 CHLAMYDIA SCREENING (<18) CHLAMYDIA SCREENING (<18) [facility] Start: 11-13-2018 GC (GONORRHEA) SCREENING (<18) GC (GONORRHEA) SCREENING (<18) [facility] Start: 11-13-2018 HPV (1 - 3-dose series) HPV (1 - 3-d ose series) [facility] Start: 11-13-2018 HPV Vaccine (1 - 3-d ose series) HPV Vaccine (1 - 3-dose series) [facility] Start: 11-13-2018 Vision Screening Vision Screening [facility] Start: 11-13-2017 PEDS TO ADULT TRANSITION ANNUAL ASSESSMENT PEDS TO ADULT TRANSITION ANNUAL ASSESSMENT [facility] Start: 2015 Adult depression screening assessment DEPRESSION SCREENING [facility] Start: 2015 PEDS TO ADULT TRANSITION INITIAL DISCUSSION PEDS TO ADULT TRANSITION INITIAL DISCUSSION [facility] Start: 11-13-2014 HPV (1 - 2-dose series) HPV (1 - 2-d ose series) [facility] Start: 11-13-2014 HPV VACCINE (1 - 2-d ose series) HPV VACCINE (1 - 2-dose series) [facility] Start: 11-13-2013 MENINGOCOCCAL B: Consider based on risk (1 of 2 - Risk Bexsero 2-dose series) MENINGOCOCCAL B: Consider based on risk (1 of 2 - Risk Bexsero 2-dose series) [facility] Start: 11-13-2012 HPV VACCINE (1 - 2-d ose series) HPV VACCINE (1 - 2-dose series) [facility] Start: 11-13-2010 Urine microalbumin profile DTAP,TDAP,TD (1 - Tdap) [facility] Start: 06-18-2009 MMR (1 of 2 - Standa rd series) MMR (1 of 2 - Standard series) [facility] Start: 06-18-2009 VARICELLA (1 of 2 - 2-dose childhood series) VARICELLA (1 of 2 - 2-dose childhood series) [facility] Start: 11-13-2008 COVID-19 VACCINE (1) COVID-19 VACCIN E (1) [facility] Start: 05-16-2004 COVID-19 (#1) COVID-19 (#1) [facility] Start: 05-16-2004 COVID-19 VACCINE (#1) COVID-19 VACCI NE (#1) [facility] Start: 01-14-2004 POLIO (1 of 3 - 4-do se series) POLIO (1 of 3 - 4-dose series) [facility] Start: 2003 HEPATITIS B (1 of 3 - 3-dose primary series) [facility] BACTERIAL VAGINOSIS NAAT BACTERIAL VAGINOSIS NAAT Lab Routine Vaginal discharge Vaginal odor 05/30/2024 2:11 PM EST [facility] Work Phone: VANGIE/TRICHOMONAS NAAT VANGIE/TRICHOMONAS NAAT Lab Routine Vaginal discharge Vaginal odor 05/30/2024 2:11 PM [facility] Chlamydia trachomatis+Neisseria gonorrhoeae DNA [Presence] in Unspecified specimen by BRITTANI with probe detection GONORRHEA/CHLAMYDIA NAAT Lab Routine Vaginal discharge Vaginal odor 05/30/2024 2:[address] [facility] End: 10-25-2022 Radiologic exam chest 2 views XR CHEST 2V FRONTAL/LAT Radiology Routine Pectus excavatum 1 Occurrences starting 09/25/2021 until 10/25/2022 [facility] Work Phone: Comment on above: 1 Occurrences starti ng 09/25/2021 until 10/25/2022 End: 02-15-2022 Thyrotropin [Units/volume] in Serum or Plasma TSH Lab Timed Chronic lymphocytic thyroiditis 1 Occurrences starting 02/15/2022 until 02/15/2022 [facility] Work Phone: Comment on above: 1 Occurrences starti ng 02/15/2022 until 02/15/2022 End: 02-15-2022 Thyroxine (T4) free [Mass/volume] in Serum or Plasma T4, free Lab Timed Chronic lymphocytic thyroiditis 1 Occurrences starting 02/15/2022 until 02/15/2022 [facility] Comment on above: 1 Occurrences starti ng 02/15/2022 until 02/15/2022 [facility] Immunizations Immunization Date Immunization Notes Care Provider Fa [facility] 01-21-2020 meningococcal polysaccharide (groups A, C, Y and W-135) diphtheria toxoid conjugate vaccine (MCV4P) Tri Greenwood DO Work Phone: [facility] 02-04-2016 meningococcal polysaccharide (groups A, C, Y and W-135) diphtheria toxoid conjugate vaccine (MCV4P) Tri Marizolpke DO Work Phone: [facility] 02-04-2016 tetanus toxoid, redu nicole diphtheria toxoid, and acellular pertussis vaccine, adsorbed Tri Wilma DO Work Phone: [facility] 07-16-2009 novel influenza-H1N1 -09, preservative-free, injectable Tri Marizolpke DO Work Phone: [facility] 07-16-2009 influenza virus vacc ine, unspecified formulation Radha Nice APRN.YACHT MASTER Work Phone: [facility] 05-21-2009 novel influenza-H1N1 -09, preservative-free, injectable Tri Krwadepke DO Work Phone: [facility] 12-02-2008 diphtheria, tetanus toxoids and acellular pertussis vaccine Tri Greenwood DO Work Phone: [facility] 12-02-2008 measles, mumps and rubella virus vaccine Trity Fontanapke DO Work Phone: [facility] 12-02-2008 poliovirus vaccine, inactivated Trity Greenwood DO Work Phone: [facility] 12-02-2008 varicella virus vaccine Pepepaulino Canchola DO Work Phone: [facility] 12-16-2006 hepatitis A vaccine, pediatric/adolescent dosage, 2 dose schedule Tri Greenwood DO Work Phone: [facility] 05-11-2006 influenza virus vacc ine, unspecified formulation Tri Greenwood DO Work Phone: [facility] 12-15-2005 hepatitis A vaccine, pediatric/adolescent dosage, 2 dose schedule Tri Greenwood DO Work Phone: [facility] 05-31-2005 influenza virus vacc ine, unspecified formulation Tri Greenwood DO Work Phone: [facility] 02-24-2005 diphtheria, tetanus toxoids and acellular pertussis vaccine Trity Greenwood DO Work Phone: [facility] 02-24-2005 pneumococcal conjuga te vaccine, 7 valent Trity Greenwood DO Work Phone: [facility] 02-24-2005 varicella virus vaccine Pepepaulino Canchola DO Work Phone: [facility] 11-16-2004 haemophilus influenz ae type b conjugate and Hepatitis B vaccine Trity Greenwood DO Work Phone: [facility] 11-16-2004 haemophilus influenz ae type b vaccine, PRP-T conjugate Tri Greenwood DO Work Phone: [facility] 11-16-2004 hepatitis B vaccine, pediatric or pediatric/adolescent dosage Trity Fontanapke DO Work Phone: [facility] 11-16-2004 measles, mumps and rubella virus vaccine Tri Marizolpke DO Work Phone: [facility] 08-17-2004 poliovirus vaccine, inactivated Tri Krwadepke DO Work Phone: [facility] 06-17-2004 influenza virus vacc ine, unspecified formulation Trity Fontanapke DO Work Phone: [facility] 05-18-2004 diphtheria, tetanus toxoids and acellular pertussis vaccine Tri Kruepke DO Work Phone: [facility] 05-18-2004 haemophilus influenz ae type b vaccine, PRP-T conjugate Trity Fontanapke DO Work Phone: [facility] 05-18-2004 influenza virus vacc ine, unspecified formulation Trity Fontanapke DO Work Phone: [facility] 05-18-2004 pneumococcal conjuga te vaccine, 7 valent Tri Kruepke DO Work Phone: [facility] 03-16-2004 diphtheria, tetanus toxoids and acellular pertussis vaccine Tri Marizolpke DO Work Phone: [facility] 03-16-2004 haemophilus influenz ae type b vaccine, PRP-T conjugate Trity Fontanapke DO Work Phone: [facility] 03-16-2004 pneumococcal conjuga te vaccine, 7 valent Tri Kruepke DO Work Phone: [facility] 03-16-2004 poliovirus vaccine, inactivated Tri Kruepke DO Work Phone: [facility] 01-16-2004 diphtheria, tetanus toxoids and acellular pertussis vaccine Tri Marizolpke DO Work Phone: [facility] 01-16-2004 haemophilus influenz ae type b conjugate and Hepatitis B vaccine Tri Krwadepke DO Work Phone: [facility] 01-16-2004 haemophilus influenz ae type b vaccine, PRP-T conjugate Tri Greenowod DO Work Phone: [facility] 01-16-2004 hepatitis B vaccine, pediatric or pediatric/adolescent dosage Trity Greenwood DO Work Phone: [facility] 01-16-2004 pneumococcal conjuga te vaccine, 7 valent Trity Greenwood DO Work Phone: [facility] 01-16-2004 poliovirus vaccine, inactivated Tri Greenwood DO Work Phone: [facility] 2003 hepatitis B vaccine, pediatric or pediatric/adolescent dosage Tri Greenwood DO Work Phone: [facility] Payers Date Payer Category Payer Self-pay 2020 Unknown MMO MMO [employer] [id number] 2020-Present [phone] [address] [place] [address] PPO [id number] 2013 Unknown [id number] 2007 Unknown [id number] 2003 Unknown [id number] 2003 Unknown [id number] 2003 Unknown [id number] 2003 Unknown [id number] 2003 Unknown [id number] 2003 Unknown [id number] 2003 Unknown [id number] 2003 Unknown [id number] Unknown [id number] Social History Date Type Detail Facility Never smoker [facility] Start: 2003 Sex Assigned At Female A [facility] Start: 09-10-2019 End: 05-29-2022 Tobacco smoking status NHIS Never smoked tobacco [facility] Start: 09-10-2019 End: 02-22-2023 Tobacco use and exposure Smokeless tobacco non-user [facility] Start: 2003 Sex Assigned At Not on file [facility] Start: 09-15-2021 End: 01-25-2022 Exposure to SARS-CoV-2 (event) Not sure [facility] Start: 05-26-2021 End: 01-31-2024 Alcohol intake Current non-drinker of alcohol (finding) [facility] Start: 02-05-2022 End: 02-15-2022 Exposure to SARS-CoV-2 (event) Unable to assess [facility] Start: 02-06-2021 End: 01-17-2023 History of [address] [facility] Start: 02-06-2021 End: 01-17-[address] [facility] National Score (1-100), lower number is lower risk [address] [facility] Start: 04-06-2024 End: 05-30-2024 Alcoholic beverage intake Lifetime non-drinker (finding) 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 Sinus congestion, sinus pressure, fever this morning-unsure how high, soreness in tonsils. Sinus Problem This is a new problem. The current episode started yesterday. The problem occurs constantly. The problem has been unchanged. Associated symptoms include congestion and a fever. Pertinent negatives include no chest pain, chills, coughing, fatigue, headaches, sore throat, vertigo, visual change or vomiting. Past Medical History She has a past medical history of Hypothyroid. Past Surgical History She has a past surgical history that includes Pectus excavatum repair (Bilateral). Social History Social History Tobacco Use Smoking status: Never Passive exposure: Never Smokeless tobacco: Never Tobacco comments: Vaping hx: denies Substance Use Topics Alcohol use: Yes Comment: 2-3/week Family History She family history is not on file. Current Medication Outpatient Medications Marked as Taking for the 06/10/24 encounter (Office Visit) with Chelsey Robles CNP: SYNTHROID 112 MCG TABS, Take 112 mcg by mouth daily., Disp: , Rfl: Multiple Vitamin (MULTI-VITAMIN) TABS, Take by mouth., Disp: , Rfl: Last reviewed on 06/10/2024 1:44 PM by Chelsey Robles CNP Note: Some of the medications listed above may have been ordered after the last review. Allergies Allergies Allergen Reactions Milk (Food) GI Upset Review of Systems Constitutional: Positive for fever. Negative for chills and fatigue. HENT: Positive for congestion. Negative for sore throat. Reports symptoms for 1 day. Respiratory: Negative for cough. Cardiovascular: Negative for chest pain. Gastrointestinal: Negative for vomiting. Neurological: Negative for vertigo and headaches. BP 109/81 Pulse 118 Temp 98.6 F (37 C) (Temporal) Resp 16 Ht 64 (162.6 cm) Wt 105 lb (47.6 kg) LMP (LMP Unknown) SpO2 98% BMI 18.02 kg/m? Objective Objective: Physical Exam Vitals and nursing note reviewed. Constitutional: General: She is not in acute distress. Appearance: Normal appearance. She is well-developed. She is not ill-appearing, toxic-appearing or diaphoretic. HENT: Head: Normocephalic. Right Ear: External ear normal. Left Ear: External ear normal. Nose: Nose normal. No congestion or rhinorrhea. Mouth/Throat: Mouth: Mucous membranes are moist. Pharynx: Posterior oropharyngeal erythema present. No oropharyngeal exudate. Eyes: General: No scleral icterus. Right eye: No discharge. Left eye: No discharge. Conjunctiva/sclera: Conjunctivae normal. Pupils: Pupils are equal, round, and reactive to light. Neck: Vascular: No carotid bruit. Cardiovascular: Rate and Rhythm: Normal rate and regular rhythm. Heart sounds: Normal heart sounds. Pulmonary: Effort: Pulmonary effort is normal. No respiratory distress. Breath sounds: No wheezing or rales. Musculoskeletal: General: Normal range of motion. Cervical back: Normal range of motion and neck supple. No rigidity or tenderness. Lymphadenopathy: Cervical: Cervical adenopathy present. Skin: General: Skin is warm and dry. Neurological: General: No focal deficit present. Mental Status: She is alert and oriented to person, place, and time. Motor: No weakness. Psychiatric: Mood and Affect: Mood normal. Behavior: Behavior normal. Thought Content: Thought content normal. Judgment: Judgment normal. Procedures Office Visit on 06/10/2024 Component Date Value Ref Range Status QUIDEL IRASEMA SERIAL # 06/10/2024 [id number] Final COVID-19 IRASEMA SARS ANTIGEN TERRELL 06/10/2024 Negative Final RAPID INFLUENZA A AG EXTERNAL LAB 06/10/2024 Negative Final RAPID INFLUENZA B AG EXTERNAL LAB 06/10/2024 Negative Final Quid Sof 2 Flu and Sars Ag - Lot N* 06/10/2024 [id number] Final INTERNAL CONTROL-Back Office 06/10/2024 Passed Final RAPID BETA STREP GROUP A AG MEDIA LAW FACULTY MEMBER* 06/10/2024 NEGATIVE Negative Final Rapid Strep G A AG - Lot Number 06/10/2024 [id number] Final INTERNAL CONTROL-Back Office 06/10/2024 Passed Final Irasema Serial Number, if used for t* 06/10/2024 [id number] Final Assessment & Plan: Ryne was seen today for sinus problem. Diagnoses and all orders for this visit: Sinus congestion - POCT QUIDEL IRASEMA 2 FLU AND SARS ANTIIGEN TERRELL IMMUNOASSAY - RAPID STREP GROUP A ANTIGEN - STREP A DNA PROBE; Future Viral infection Nasal congestion Advise patient to use medication as directed. May take over the counter tylenol or ibuprofen to relieve sinus pain or pressure. Advised patient to take over the counter Flonase. May also use a vaporizer to help relieve congestion and loosen secretions. Suggest that patient utilize nasal saline rinse (more content not included)... [facility] 05-30-2024 Note HNO ID: [id number] Author: KHADIJAH CERVANTES APRN.ESTHER Service: ? Author Type: Water Treatment Operator Type: Progress Notes Filed: 05/30/2024 14:30 Note Text: Oral Surgeon offered: Patient declines. SUBJECTIVE: Ryne Yates is an 18 year old woman who presents with vaginitis. Symptoms include discharge described as malodorous, white, mucous, local irritation, and odor. Onset of symptoms 1 week(s) ago, intermittent since. Predisposing factors: none Hx of previous vaginitis: none Sexually active: yes, single partner, contraception - condoms. Current Outpatient Medications on File Prior to Visit Medication Sig multivitamin tablet Take by mouth as directed. SYNTHROID 112 mcg tablet Norethindrone, Contraceptive, 0.35 mg tablet Take 1 tablet by mouth once daily. No current facility-administered medications on file prior to visit. ALLERGIES No Known Allergies Social History Tobacco Use Smoking status: Never Passive exposure: Never Smokeless tobacco: Never Vaping Use Vaping status: Never Used Substance Use Topics Alcohol use: Never Drug use: Never OBJECTIVE: BP 104/78 Wt 50.3 kg (110 lb 12.8 oz) LMP 02/13/2024 (Approximate) BMI 18.53 kg/m? Pelvic: Negative, Bimanual exam normal. ASSESSMENT AND PLAN: Assessment AND Plan Vaginal discharge Vaginal odor Acute vaginitis GC/CH BACT/YEAST Reviewed vulvar hygiene Reviewed safe sex practices- stopped using OCP last month and is currently using condoms Will notify patient of results and any treatment plans Khadijah Cervantes APRN.CNM [facility] 05-30-2024 History of Presen t illness Narrative Oral Surgeon offered: Patient declines. SUBJECTIVE: Ryne Yates is an 18 year old woman who presents with vaginitis. Symptoms include discharge described as malodorous, white, mucous, local irritation, and odor. Onset of symptoms 1 week(s) ago, intermittent since. Predisposing factors: none Hx of previous vaginitis: none Sexually active: yes, single partner, contraception - condoms. Current Outpatient Medications on File Prior to Visit Medication Sig multivitamin tablet Take by mouth as directed. SYNTHROID 112 mcg tablet Norethindrone, Contraceptive, 0.35 mg tablet Take 1 tablet by mouth once daily. No current facility-administered medications on file prior to visit. ALLERGIES No Known Allergies Social History Tobacco Use Smoking status: Never Passive exposure: Never Smokeless tobacco: Never Vaping Use Vaping status: Never Used Substance Use Topics Alcohol use: Never Drug use: Never OBJECTIVE: BP 104/78 Wt 50.3 kg (110 lb 12.8 oz) LMP 02/13/2024 (Approximate) BMI 18.53 kg/m Pelvic: Negative, Bimanual exam normal. ASSESSMENT AND PLAN: Assessment & Plan Vaginal discharge Vaginal odor Acute vaginitis GC/CH BACT/YEAST Reviewed vulvar hygiene Reviewed safe sex practices- stopped using OCP last month and is currently using condoms Will notify patient of results and any treatment plans Khadijah Cervantes APRN.CNM documented in this encounter [facility] 04-06-2024 Note HNO ID: [id number] Author: RADHA NICE APRN.CNP Service: ? Author Type: Nurse Practitioner Type: Progress Notes Filed: 04/06/2024 12:58 Note Text: VIRTUAL VISIT PROGRESS NOTE This is a virtual visit using [employer] MDJunction[employer] Video Visit. It required patient-provider interaction for the medical decision making as documented below. I have communicated my name and active licensure. The patient's identity and physical location were verified at the time of this visit. Either the patient or their legal jewelry sales representative has been informed of the risks and benefits of -- and alternatives to -- treatment through a remote evaluation and consents to proceed with the evaluation remotely. Ryne Yates is a 18 year old female seen for side effects. Pt states that she is getting nausea everyday after taking the pill. She also tried to switch to taking it before bedtime and she still is experiencing the nausea. She would like information about other progesterone forms of control. HISTORY REVIEWED (electronic chart updated): PAST MEDICAL HISTORY Diagnosis Date Luba's disease PAST SURGICAL HISTORY Procedure Laterality Date REPAIR PECTUS EXCAVATM/CARINATM MINLY W/O THRSC FAMILY HISTORY Problem Relation Age of Onset No Known Problems Mother No Known Problems Father No Known Problems Brother No Known Problems Brother No Known Problems Maternal Grandmother No Known Problems Maternal Grandfather No Known Problems Paternal Grandmother No Known Problems Paternal Grandfather Social History Tobacco Use Smoking status: Never Passive exposure: Never Smokeless tobacco: Never Vaping Use Vaping status: Never Used Substance Use Topics Alcohol use: Never Drug use: Never Current Outpatient Medications Medication Sig multivitamin tablet Take by mouth as directed. SYNTHROID 112 mcg tablet Norethindrone, Contraceptive, 0.35 mg tablet Take 1 tablet by mouth every afternoon. No current facility-administered medications for this visit. ALLERGIES No Known Allergies REVIEW OF SYSTEMS: GENERAL: feeling well without fatigue, no recent change in weight, +nausea PHYSICAL EXAMINATION: VIDEO EXAM: (if completed, performed via video enabled technology) No exam performed ASSESSMENT/PLAN: 1. Encounter for other contraceptive management - ICD9: V25.8, ICD10: Z30.8 Reviewed progesterone only options with patient. Sent new prescription in for d.a.w. progesterone pill to see if this will help with the nausea. Pt will send update I spent a total of 20 minutes on the date of the service which included preparing to see the patient, [id number] patient care, completing clinical documentation, obtaining and/or reviewing separately obtained history, counseling and educating the patient/family/caregiver, and ordering medications, tests, or procedures Radha Nice APRN.[facility] 04-06-2024 History of Presen t illness Narrative VIRTUAL VISIT PROGRESS NOTE This is a virtual visit using [employer] Zoom Video Visit. It required patient-provider interaction for the medical decision making as documented below. I have communicated my name and active licensure. The patient's identity and physical location were verified at the time of this visit. Either the patient or their legal jewelry sales representative has been informed of the risks and benefits of -- and alternatives to -- treatment through a remote evaluation and consents to proceed with the evaluation remotely. Ryne Yates is a 18 year old female seen for side effects. Pt states that she is getting nausea everyday after taking the pill. She also tried to switch to taking it before bedtime and she still is experiencing the nausea. She would like information about other progesterone forms of control. HISTORY REVIEWED (electronic chart updated): PAST MEDICAL HISTORY Diagnosis Date Luba's disease PAST SURGICAL HISTORY Procedure Laterality Date REPAIR PECTUS EXCAVATM/CARINATM MINLY W/O THRSC FAMILY HISTORY Problem Relation Age of Onset No Known Problems Mother No Known Problems Father No Known Problems Brother No Known Problems Brother No Known Problems Maternal Grandmother No Known Problems Maternal Grandfather No Known Problems Paternal Grandmother No Known Problems Paternal Grandfather Social History Tobacco Use Smoking status: Never Passive exposure: Never Smokeless tobacco: Never Vaping Use Vaping status: Never Used Substance Use Topics Alcohol use: Never Drug use: Never Current Outpatient Medications Medication Sig multivitamin tablet Take by mouth as directed. SYNTHROID 112 mcg tablet Norethindrone, Contraceptive, 0.35 mg tablet Take 1 tablet by mouth every afternoon. No current facility-administered medications for this visit. ALLERGIES No Known Allergies REVIEW OF SYSTEMS: GENERAL: feeling well without fatigue, no recent change in weight, +nausea PHYSICAL EXAMINATION: VIDEO EXAM: (if completed, performed via video enabled technology) No exam performed ASSESSMENT/PLAN: 1. Encounter for other contraceptive management - ICD9: V25.8, ICD10: Z30.8 Reviewed progesterone only options with patient. Sent new prescription in for d.a.w. progesterone pill to see if this will help with the nausea. Pt will send update I spent a total of 20 minutes on the date of the service which included preparing to see the patient, [id number] patient care, completing clinical documentation, obtaining and/or reviewing separately obtained history, counseling and educating the patient/family/caregiver, and ordering medications, tests, or procedures Radha Tex, BRILLIANDEER LOOPER.YACHT MASTER documented in this encounter [facility] 07-15-2023 Note HNO ID: [id number] Author: RADHA NICE APRN.CNP Service: ? Author Type: Nurse Practitioner Type: Progress Notes Filed: 07/15/2023 13:52 Note Text: Oral Surgeon offered: Patient declines. Way is a 17 year old who presents for an annual gynecologic exam without complaints. Presents: alone Menses: light spotting usually no menses. Contraception: Progestin - only contraceptives HPV vaccine: N/A Last pap smear: never Sexually active: Yes History of STDS: None Patient concerns for STD exposure: No. 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 History Comments: Sexual Activity: Yes; Male Contraception: Pill PAST MEDICAL HISTORY Diagnosis Date Luba's disease PAST SURGICAL HISTORY Procedure Laterality Date REPAIR PECTUS EXCAVATM/CARINATM MINLY W/O THRSC FAMILY HISTORY Problem Relation Age of Onset No Known Problems Mother No Known Problems Father No Known Problems Brother No Known Problems Brother No Known Problems Maternal Grandmother No Known Problems Maternal Grandfather No Known Problems Paternal Grandmother No Known Problems Paternal Grandfather SOCIAL HISTORY Social History Tobacco Use Smoking status: Never Passive exposure: Never Smokeless tobacco: Never Vaping Use Vaping Use: Never used Substance Use Topics Alcohol use: Never Drug use: Never REVIEW OF SYSTEMS Abdomen: No bloating, early satiety, indigestion, or increased flatulence. No abdominal pain, nausea, vomiting, diarrhea, or constipation. Bladder: No dysuria, gross hematuria, urinary frequency, urinary urgency, or incontinence. Breast: No breast lumps, nipple d/c, overlying skin changes, redness or skin retraction. Allergies and current medication updated:Yes EXAM: Wt 106 lb 6.4 oz (48.3kg) LMP 12/24/2022 GENERAL: pleasant, in no apparent distress HEENT: Normocephalic, atraumatic, mucus membranes moist, and no lesions CHEST: Normal inspiratory effort NEURO: alert and oriented x3,exam grossly non-focal EXTREMITIES: normal ASSESSMENT/PLAN: 1) Health maintenance: Pap starting at the age of 21. Safe sex practices reviewed. Nutrition, exercise, and routine health maintenance exams reviewed. 2) Contraception: Progestin - only contraceptives. Contraceptive options reviewed and information provided. 3) STD screening: Declined STD check. 4) Follow up one year or sooner as needed. Radha Nice APRN.[facility] 01-17-2023 History of Presen t illness Narrative Information regarding this patient will be communicated back to the Primary Physician via electronic or regular mail. See dictated letter by Dr Cowan on 01/17/2023 which will serve as documentation for this clinical encounter. This can be accessed under the LETTERS tab in the MyPractice menu above. I spent a total of 30 minutes on the date of the service which included: preparing to see the patient, [id number] patient care, completing clinical documentation, obtaining and/or reviewing separately obtained history, performing a medically appropriate examination, counseling and educating the patient/family/caregiver, independently interpreting results (not separately reported), and communicating results to the patient/family/caregiver. Dr Tyrel Cowan documented in this encounter [facility] 01-17-2023 Miscellaneous Notes Radiology Service Progress Note PATIENT NAME: Ryne Yates DATE OF SERVICE: January 17, 2023 TIME: 9:51 AM PATIENT IDENTITY VERIFICATION COMPLETED USING TWO (2) IDENTIFIERS: Name and Date of confirmed by patient verbally. FALL SCREENING: Has the patient had 2 falls in the last year or 1 fall with injury or currently using an Ambulatory Assistive Device (Walker, Cane, Wheelchair, Crutches, etc.)? No PATIENT GENDER DATA: Female. status: : No status: NO. PATIENT RELEVANT IMPLANT DATA REVIEWED: Not Applicable RADIOLOGY DEPARTMENT: General X-ray: Exam(s) Completed: Chest X-Ray PERIPHERAL IV DATA: Not applicable SIGNED BY: RT Cassius(R) January 17, 2023 9:51 AM documented in this encounter [facility] 09-30-2021 Instructions Rachel Mcclelland RN - 09/30/2021 4:18 PM EDT kiana Arellano general material scheduler, will call to set up 3 month follow up appointment with Dr. Cowan. Please call [phone] with any questions or concerns. documented in this encounter [facility] 09-30-2021 History of Presen t illness Narrative Information regarding this patient will be communicated back to the Primary Physician via electronic or regular mail. See dictated letter by Dr Cowan on 09/30/2021 which will serve as documentation for this clinical encounter. This can be accessed under the LETTERS tab in the MyPractice menu above. documented in this encounter [facility] 09-30-2021 History of Presen t illness Narrative Radiology Service Progress Note PATIENT NAME: Ryne Yates DATE OF SERVICE: September 30, 2021 TIME: 4:03 PM PATIENT IDENTITY VERIFICATION COMPLETED USING TWO (2) IDENTIFIERS: Name and Date of confirmed by patient verbally. FALL SCREENING: Has the patient had 2 falls in the last year or 1 fall with injury or currently using an Ambulatory Assistive Device (Walker, Cane, Wheelchair, Crutches, etc.)? No PATIENT GENDER DATA: Female. status: : No status: NO. PATIENT RELEVANT IMPLANT DATA REVIEWED: Not Applicable RADIOLOGY DEPARTMENT: General X-ray: Exam(s) Completed: Chest X-Ray PERIPHERAL IV DATA: Not applicable SIGNED BY: RT Ingris(R) September 30, 2021 4:03 PM documented in this encounter [facility] Evaluation + Plan note No data available for this section [facility] Evaluation note Diagnosis Pectus excavatum- Primary documented in this encounter [facility] note* Diagnosis Pectus excavatum- Primary documented in this encounter [facility] note* Diagnosis Pectus excavatum documented in this encounter [facility] note* Diagnosis Chronic lymphocytic thyroiditis documented in this encounter [facility] note* Diagnosis Chronic lymphocytic thyroiditis documented in this encounter [facility] note* Diagnosis Pectus excavatum documented in this encounter [facility] note* Diagnosis Chronic lymphocytic thyroiditis documented in this encounter [facility] note* Diagnosis Encounter for other contraceptive management- Primary documented in this encounter [facility] note* Diagnosis Vaginal discharge- Primary Leukorrhea, not specified as infective Vaginal odor Unspecified symptom associated with female genital organs Acute vaginitis Vaginitis and vulvovaginitis, unspecified documented in this encounter [facility] noteNo assessment information availableSharp [facility] Work Phone: Hospital Discharge instructions No data available for this section [facility] Reason for referral (narrative)No reason for referral information availableSharp [facility] Work Phone: Summary Purpose Family History No Family History Records FoundNo Family History Records FoundNo Family History Records FoundNo Family History Records FoundNo Family History Records FoundNo Family History Records Found Advance Directives No Advanced Directives Records FoundNo Advanced Directives Records FoundNo Advanced Directives Records FoundNo Advanced Directives Records FoundNo Advanced Directives Records FoundNo Advanced Directives Records Found Chief Complaint and Reason for Visit Chief Complaint Admit Date POSSIBLE BUG BITES December 31, 2024 5:41 pm Additional Source Comments INFORMATION SOURCE (unrecogn ized section and content) DATE CREATED AUTHOR 08/29/2021 [facility] [facility] ([place]) DATE CREATED AUTHOR AUTHOR'S ORGANIZ ATION 06/02/2024 [facility] DATE CREATED AUTHOR AUTHOR'S ORGANIZ ATION 01/02/2025 [facility] DATE CREATED AUTHOR AUTHOR'S ORGANIZ ATION 02/05/2025 [facility] DATE CREATED AUTHOR AUTHOR'S ORGANIZ ATION 05/11/2025 [facility] DATE CREATED AUTHOR AUTHOR'S ORGANIZ ATION 05/11/2025 [facility] Source Comments (unrecognize d section and content) In the event this informatio n is protected by the Federal Confidentiality of Alcohol and Drug Abuse Patient Records regulations: The Federal rules restrict any use of the information to criminally investigate or prosecute any alcohol or drug abuse patient.[facility] the event this information is protected by the Federal Confidentiality of Alcohol and Drug Abuse Patient Records regulations: The Federal rules restrict any use of the information to criminally investigate or prosecute any alcohol or drug abuse patient.[facility] the event this information is protected by the Federal Confidentiality of Alcohol and Drug Abuse Patient Records regulations: The Federal rules restrict any use of the information to criminally investigate or prosecute any alcohol or drug abuse patient.[facility] the event this information is protected by the Federal Confidentiality of Alcohol and Drug Abuse Patient Records regulations: The Federal rules restrict any use of the information to criminally investigate or prosecute any alcohol or drug abuse patient.[facility] the event this information is protected by the Federal Confidentiality of Alcohol and Drug Abuse Patient Records regulations: The Federal rules restrict any use of the information to criminally investigate or prosecute any alcohol or drug abuse patient.[facility] the event this information is protected by the Federal Confidentiality of Alcohol and Drug Abuse Patient Records regulations: The Federal rules restrict any use of the information to criminally investigate or prosecute any alcohol or drug abuse patient.[facility] the event this information is protected by the Federal Confidentiality of Alcohol and Drug Abuse Patient Records regulations: The Federal rules restrict any use of the information to criminally investigate or prosecute any alcohol or drug abuse patient.[facility] Care Teams (unrecognized sec tion and content) Franchise Business Consultant Relationship Specialty Start Date End Date KruepTri hess Angela [address] [place] [address] (Fax) PCP - General Pediatrics 08/11/21 Veronica Hurley, TAYLOR Transitional Clinical Implementation Specialist 08/11/20 Franchise Business Consultant Relationship Specialty Start Date End Date MarizoljonesTri Angela [address] [place] [address] (Fax) PCP - General Pediatrics 08/11/21 Veronica Hurley, RN Transitional Clinical Implementation Specialist 08/11/20 Franchise Business Consultant Relationship Specialty Start Date End Date TavaresdignaTri Angela [address] [place] [address] (Fax) PCP - General Pediatrics 08/11/21 Veronica Hurley, TAYLOR Transitional Clinical Implementation Specialist 08/11/20 Franchise Business Consultant Relationship Specialty Start Date End Date Tri [place], [place] [address] [place] [address] (Fax) PCP - General 04/21/20 Franchise Business Consultant Relationship Specialty Start Date End Date Tri [place], [place] [address] [place] [address] (Fax) PCP - General 04/21/20 Franchise Business Consultant Relationship Specialty Start Date End Date Tri Greenwood [facility] [place] [address] (Fax) PCP - General Pediatrics 08/11/21 Veronica Hurley, TAYLOR Transitional Clinical Implementation Specialist 08/11/20 Franchise Business Consultant Relationship Specialty Start Date End Date Tri Greenwood [facility] [place] [address] (Fax) PCP - General Pediatrics 08/11/21 Veronica Hurley, TAYLOR Transitional Clinical Implementation Specialist 08/11/20 Franchise Business Consultant Relationship Specialty Start Date End Date Abdoul Rendon [address] [place] [place] [address] PCP - General Family Medicine 06/14/22 Franchise Business Consultant Relationship Specialty Start Date End Date Tri [place]wood [address] [place] [address] PCP - General Pediatrics 08/11/21 Veronica Hurley, RN Transitional Clinical Implementation Specialist 08/11/20 Fr[employer]ise Business Consultant Relationship Specialty Start Date End Date Abdoul Rendon [place] [address] [place] [place] [address] PCP - General Family Medicine 06/14/22 Team Status: Active Member Role/Relationship Status Dates Dr. Valentine Motta MD Family Provider Active Team Status: Inactive Member Role/Relationship Status Dates Alberto WARD, PA Attending Provider Active Start: December 31, 2024 End: December 31, 2024 Reason for Visit (unrecogniz ed section and content) Reason Comments Post Op Specialty Diagnoses / Procedures Referred By Contac t Referred To Contact XR IMAGING Diagnoses Chest xray Procedures Bar removal surgery Tyrel Cowan MD [address] [id number] Xr Imaging Referral ID Status Reason Start Date Expiration Date Visits Requested Visits Authorized [id number] Outside PCP OON/Self Pay Override 09/25/2021 12/24/2021 2 2 Reason Comments Pectus Reason Comments Contraception Reason Comments Vaginal Problem Goals (unrecognized section and content) Goals may be documented in a n alternate section FOR RECORDS PERTAINING TO PATIENTS WHO ARE OR HAVE BEEN ENROLLED IN A CHEMICAL DEPENDENCY/SUBSTANCEABUSE PROGRAM, SOME INFORMATION MAY BE OMITTED. This clinical summary was aggregated from multiple sources. Caution should be exercised in using it in the provision of clinical care. This summary normalizes information from multiple sources, and as a consequence, information in this document may materially change the coding, format and clinical context of patient data. In addition, data may be omitted in some cases. CLINICAL DECISIONS SHOULD BE BASED ON THE PRIMARY CLINICAL RECORDS. [email or web address] [facility]. provides no warranty or guarantee of the accuracy or completeness of information in this document.
[2025-06-25 12:22] LABS: Hematocrit 39.9 % (37-47); Hemoglobin 13.9 g/dL (12.0-15.0); Immature Granulocytes Count 0.020 X10^3/uL (0.0-0.0); Mean Corp Hgb Conc 34.8 g/dL (32-36); Mean Corpuscular Volume 86.0 fL (81-99); Mean Platelet Vol. 8.9 fl (6.2-12.0); NRBC Flagged by Analyzer 0 % (0-5); Platelet Count 333 K/mm3 (150-450); RBC Distribution Width CV 11.7 % (11.6-14.6); RBC Distribution Width SD 37.0 fl (35.1-43.9); Red Blood Count 4.64 M/mm3 (4.2-5.4); White Blood Count 6.4 K/mm3 (4.4-11.0)
[2025-06-25 14:08] LABS: AST(SGOT) 19 U/L (<=31); Alanine Aminotransfer ALT/SGPT 9 U/L (<=34); Albumin, Serum 4.6 g/dL (3.5-5.0); Alkaline Phosphatase 75 U/L (35-104); Anion Gap 14 (7-18); BUN 10 mg/dL (4-19); BUN/Creat Ratio 13.6 RATIO (10-20); CORTISOL AM 16.50 ug/dL (6.02-18.40); Calcium,Total 9.5 mg/dL (7.6-11.0); Carbon Dioxide 25.0 mmol/L (20.0-29.0); Chloride 103 mmol/L (96-106); Free T3 3.0 pg/mL (2.18-3.98); Globulin 2.6 g/dL (2.2-4.2); Glucose 78 mg/dL (70-99); Potassium 4.2 mmol/L (3.5-5.1)
[2025-06-29 16:08] LABS: Immunoglobulin A 183 mg/dL (87-352)
== END | disposition home or self-care (01) ==
LOC: MTLAB 09:11
PROVIDERS: PCP Nurse Practitioner Family; Referring Provider Nurse Practitioner Family; Visit Provider Nurse Practitioner Family
DX: E06.3 Autoimmune thyroiditis (principal); E16.2 Hypoglycemia, unspecified; R42 Dizziness and giddiness
CPT/HCPCS: 36415; 80053; 82024; 82533; 82784; 83003; 83516; 83525; 84439; 84443; 84481; 84482; 85025; 86255; 86376

== ENCOUNTER → 2025-07-01 | Outpatient (CLI) | payer OTHER, SELFPAY ==
--- NOTE | 2025-07-01 12:59 | US_ITS ---
PROCEDURE: THYROID 07/01/2025 REASON FOR EXAM: THYROID ENLARGEMENT TECHNIQUE: Procedure Code: USTHY Modality: US Procedure: THYROID COMPARISON: None FINDINGS: Right thyroid lobe size: 4.6 x 1.2 x 1.0 cm Left thyroid lobe size: 4.0 x 1.4 x 0.8 cm Isthmus: 0.2 cm Background parenchymal echotexture is heterogeneous There are no nodules. US/Thyroid IMPRESSION: Thyromegaly. The heterogeneous echotexture can be associated with Luba's disease or Gra ves disease. RECOMMENDATION: Based on most suspicious nodule. Nodule size = largest diameter Only evaluate nodule if =>5 mm. Growth > 20% in 2 dimensions = worsening. Follow up to 4 nodules. Recommend biopsy for no more than 2 nodules. Reading Location: [id number]
== END | disposition home or self-care (01) ==
PROVIDERS: PCP Nurse Practitioner Family; Referring Provider Nurse Practitioner Family; Visit Provider Nurse Practitioner Family
DX: E06.3 Autoimmune thyroiditis (principal)
CPT/HCPCS: 76536